=== PATIENT | female | born 1955 | race Caucasian/White ===

== ENCOUNTER → 2025-11-20 11:49 | Outpatient (REF) | payer MEDICARE, OTHER, SELFPAY | LOC: RAD 11:49 | PROVIDERS: ATTENDING PHYSICIAN Physician Assistant | DX: M54.31 Sciatica, right side (principal); M54.32 Sciatica, left side; M25.551 Pain in right hip; R32 Unspecified urinary incontinence | CPT/HCPCS: 72114; 73502 ==